=== PATIENT | female | born 1985 | race African-American/Black ===

== ENCOUNTER 2016-10-01 12:06 | Emergency (ER) | payer OTHER ==
[~2016-10-01] VITALS: Ht 157.5 cm; Wt 86.6 kg
[~2016-10-01 12:06] MED LIST: AMOX TR-K CLV1 EAC4; ATARAX,VISTARIL25 MG PO; AUGMENTIN875 MG PO; BACTRIM,SEPT1 TABLET PO; BENADRYL50 MG PO; BUSPAR10 MG PO; Bactrim,Septra DS 80 PO; CENTRUM COMPLE1 EACH PO; CENTRUM TABLET1 EACH PO; CENTRUM ULTRA1 EAC1 PO; CEPHALEXIN500 MG; CETIRIZINE HCL10 M2; CHROMAGEN,1 CAPSULE PO; CIPROFLOXACIN500 M1; CLONAZEPAM0.5 MG PO; CLONAZEPAM1 MG; CLONAZEPAM1 MG PO; Cipro PO; DICYCLOMINE HCL20 MG; DIFLUCAN150 MG PO; FERROCITE324 MG PO; FLOVENT 11120 INHALA IH; Flagyl PO; IBUPROFEN800 MG PO; K-Dur PO; KLONOPIN; KLONOPIN0.5 M1 PO; KLONOPIN1 MG PO; LASIX20 MG PO; LISINOPRIL-HCT1 EAC3 PO; MACROBID100 MG PO; MACRODANTIN100 MG PO; MOTRIN800 MG PO; NITROFURANTOIN100 M3 PO; NIZORAL 2% CREA15 GM TP; NOHOMEMEDS; PERCOCET 5/31 TABLET PO; PRENATAL TABLE1 EAC3 PO; PRINIVIL10 MG PO; PROAIR HFA8.5 GM IH; PROVENTIL,2.5 MG/3 M IH; TESSALON PERLE100 MG PO; TYLENOL REGULA325 MG PO; Theragran PO; Theragran-M,Centrum, PO; ULTRAM50 MG PO; URIBEL CAPSULE1 EACH PO; VENTOLIN HFA18 GM IH; Vicodin,Norco 5/325 PO; XANAX PO; ZOFRAN ODT4 MG PO; ZOFRAN4 MG PO; ZOLOFT100 MG PO; ZYRTEC10 M2 PO; ZYRTEC10 M3 PO; loestrin
[2016-10-01 13:20] LABS: INFLUENZA A VIRAL ANTIGEN NEGATIVE; INFLUENZA B VIRAL ANTIGEN NEGATIVE
[2016-10-01 14:12] VITALS: BP 132/86
== END 2016-10-01 14:21 | disposition home or self-care (01) ==
LOC: EME → EDBD 12:06 → EME 12:06
PROVIDERS: Emergency Medicine
DX: J06.9 Acute upper respiratory infection, unspecified (principal); Z33.1 Pregnant state, incidental; Z3A.01 Less than 8 weeks gestation of pregnancy; K21.9 Gastro-esophageal reflux disease without esophagitis; Z87.442 Personal history of urinary calculi
CPT/HCPCS: 87502; 99281; 99284

== ENCOUNTER → 2017-02-21 | Outpatient (CLI) | payer OTHER ==
[~2017-02-21] VITALS: Ht 157.5 cm; Wt 95.0 kg
[~2017-02-21] MED LIST changes: +FEOSOL45 MG PO; +LO-DOSE ASPIRIN81 M2 PO; +VITAMIN D35000 UNI2 PO
[2017-02-21 08:17] VITALS: BP 135/78
== END | disposition home or self-care (01) ==
LOC: IVINF 08:00
DX: Z31.82 Encounter for Rh incompatibility status (principal); Z3A.28 28 weeks gestation of pregnancy; Z67.41 Type O blood, Rh negative
CPT/HCPCS: 96372; J2790

== ENCOUNTER 2017-05-04 17:06 | Inpatient (IN) | payer OTHER ==
[~2017-05-04] VITALS: Ht 157.5 cm; Wt 100.2 kg
[2017-05-04] VITALS (8 sets, daily range): BP systolic 114–134; BP diastolic 61–87
[2017-05-04] MEDS ORDERED: ASPIRIN81 M2 PO (18:01)
[2017-05-04] MEDS ORDERED: VENTOLIN HFA18 GM IH (18:03)
[2017-05-04] MEDS ORDERED: HUMALOG100 UNIT/2 SC ×2 (18:05→18:07)
[2017-05-04] MEDS ORDERED: HUMULIN N100 UNITS/ SC (18:09)
[2017-05-04 18:19] LABS: EOSINOPHIL COUNT 0.3 K/uL (0-0.3); HEMATOCRIT 33.7 % (36.0-46.0); IMMATURE GRANULOCYTE (%) 0.5 % (0.0-0.7); IMMATURE GRANULOCYTE COUNT 0.1 K/uL; INSTRUMENT ABS NEUTROPHIL CT 8.2 K/uL; LYMPHOCYTE COUNT 1.7 K/uL (1.0-2.8); MCHC 33.8 G/DL (30.0-36.0); MCV 82.8 FL (83-99); MEAN PLAT.VOLUME 11.9 uM^3 (9.5-12.4); MONOCYTE (%) 7.3 % (3-12); MONOCYTE COUNT 0.8 K/uL (0-0.8); NEUTROPHIL (%) 74.1 % (45-76); NEUTROPHIL COUNT 8.2 K/uL (1.8-6.4); PLATELET COUNT 156 K/uL (156-360); RBC DIS.WIDTH-CV 16.2 % (11.8-14.6); RED BLOOD COUNT 4.07 M/uL (3.80-5.20); WHITE BLOOD COUNT 11.1 K/uL (4.1-10.2)
[2017-05-04 23:10] LABS: POINT-OF-CARE METER ID UU13113692
[2017-05-04 23:10] LABS: POINT-OF-CARE METER ID UU13113692
[2017-05-05] VITALS (41 sets, daily range): BP systolic 108–148; BP diastolic 56–95
[2017-05-05 03:15] LABS: POINT-OF-CARE METER ID UU13113692
[2017-05-05 03:15] LABS: POINT-OF-CARE METER ID UU13113692
[2017-05-05 05:10] LABS: POINT-OF-CARE METER ID UU13113692
[2017-05-05 06:58] LABS: POINT-OF-CARE METER ID UU13113692
[2017-05-05 08:35] LABS: POINT-OF-CARE METER ID UU13113801
[2017-05-05 11:09] LABS: POINT-OF-CARE METER ID UU13113692
[2017-05-05 12:51] LABS: POINT-OF-CARE METER ID UU13113692
[2017-05-05] MEDS ORDERED: MOTRIN800 MG PO (12:58)
[2017-05-05 17:48] LABS: POINT-OF-CARE METER ID UU13113692
[2017-05-06 08:08] VITALS: BP 131/83
[2017-05-06 15:37] VITALS: BP 117/76
[2017-05-06 23:07] VITALS: BP 114/70
[2017-05-07 07:56] VITALS: BP 118/78
[2017-05-07 15:20] VITALS: BP 142/72
[2017-05-07 17:40] VITALS: BP 123/68
== END 2017-05-07 17:51 | disposition home or self-care (01) | DRG 774 ==
LOC: LDRP-OP 17:06 → 2WEST 17:08 → LDRP-OP 06-16 16:17
PROVIDERS: Nurse Practitioner; Obstetrics & Gynecology
PROC: 3E0P7GC Introduction of Other Therapeutic Substance into Female Reproductive, Via Natural or Artificial Opening (ICD-10-PCS; principal; 2017-05-04)
PROC: 3E033VJ Introduction of Other Hormone into Peripheral Vein, Percutaneous Approach (ICD-10-PCS; 2017-05-04)
PROC: 10907ZC Drainage of Amniotic Fluid, Therapeutic from Products of Conception, Via Natural or Artificial Opening (ICD-10-PCS; 2017-05-05)
PROC: 10E0XZZ Delivery of Products of Conception, External Approach (ICD-10-PCS; 2017-05-05)
PROC: 3E0S3BZ Introduction of Anesthetic Agent into Epidural Space, Percutaneous Approach (ICD-10-PCS; 2017-05-05)
PROC: 00HU33Z Insertion of Infusion Device into Spinal Canal, Percutaneous Approach (ICD-10-PCS; 2017-05-05)
DX: O24.424 Gestational diabetes mellitus in childbirth, insulin controlled (principal); O99.42 Diseases of the circulatory system complicating childbirth; I34.1 Nonrheumatic mitral (valve) prolapse; I49.3 Ventricular premature depolarization; O99.02 Anemia complicating childbirth; D50.9 Iron deficiency anemia, unspecified; O99.344 Other mental disorders complicating childbirth; F41.9 Anxiety disorder, unspecified; O99.214 Obesity complicating childbirth; E66.9 Obesity, unspecified; Z68.34 Body mass index [BMI] 34.0-34.9, adult; Z3A.38 38 weeks gestation of pregnancy; Z37.0 Single live birth; Z87.442 Personal history of urinary calculi; Z79.82 Long term (current) use of aspirin
CPT/HCPCS: 82948; 85025; C1755; C1776; G0378; J1815; J2405; J3010; J7120